=== PATIENT | female | born 1985 | race Two or more races ===

== ENCOUNTER 2021-03-08 20:32 | Emergency (ER) | payer OTHER ==
[~2021-03-08] VITALS: Ht 160 cm; Wt 52.2 kg
== END 2021-03-08 22:10 | disposition home or self-care (01) ==
LOC: ER 20:32
DX: R07.0 Pain in throat (principal); K21.9 Gastro-esophageal reflux disease without esophagitis

== ENCOUNTER 2022-11-30 20:05 | Emergency (ER) | payer OTHER ==
[~2022-11-30] VITALS: Ht 160 cm; Wt 57.2 kg
[2022-11-30 21:56] LABS: HEMATOCRIT 39.8 % (36.0-45.00); HEMOGLOBIN 13.2 g/dL (12.0-15.00); MEAN CELL VOLUME 87.6 fL (80.00-100.00); MEAN CORPUSCULAR HEMOGLOBIN 29.1 pg (27.00-32.0); MEAN CORPUSCULAR HGB CONC 33.2 g/dl (32.0-36.0); PLATELET COUNT 296 K/uL (150-450); RED BLOOD COUNT 4.55 M/uL (4.00-6.00); RED CELL DISTRIBUTION WIDTH 13.9 % (11.5-14.5)
== END 2022-11-30 22:47 | disposition home or self-care (01) ==
LOC: ER 20:05
PROVIDERS: General Practice
DX: K29.70 Gastritis, unspecified, without bleeding (principal)